=== PATIENT | female | born 1935 | race Caucasian/White ===

== ENCOUNTER → 2020-02-21 | Outpatient (CLI) | payer MEDICARE, OTHER ==
--- NOTE | 2020-02-21 14:43 | Diagnostic Imaging Report ---
INDICATION: Right knee pain. TECHNIQUE: AP, oblique, and lateral views of the right knee were obtained. FINDINGS: No fracture or acute bony abnormality is seen. There is medial joint space narrowing with osteophyte formation of moderate severity. There is mild lateral joint space narrowing. There is prominent patellofemoral joint space narrowing and spurring. A joint effusion is present. IMPRESSION: Osteoarthritic changes of the right knee as described above with joint effusion present. No acute bony abnormality. Dictated by: Dictated on workstation # [id number]
== END ==
LOC: RAD FS 13:30
PROVIDERS: ATTEND Nurse Practitioner
DX: M17.11 Unilateral primary osteoarthritis, right knee (principal); M25.461 Effusion, right knee
CPT/HCPCS: 73562